=== PATIENT | female | born 1985 | race Two or more races ===

== ENCOUNTER 2022-09-23 19:09 | Emergency (ER) | payer OTHER, SELFPAY ==
[2022-09-23 19:25] VITALS: BP 155/76; BP 160/100; PULSE 83; PULSE 89; RESP 16; TEMP 37; O2SAT 100; O2SAT 99; BMI 38.9
[2022-09-23 19:36] VITALS: BP 155/76; PULSE 83; RESP 18; TEMP 37; O2SAT 100
--- NOTE | 2022-09-23 20:22 | ED_ITS ---
History of Present Illness General Chief Complaint: Epistaxis Stated Complaint: Intermittent Nosebleed x 1 week Time Seen by Provider: 09/23/22 20:05 Source: patient, RN notes reviewed and old records reviewed Mode of arrival: ambulatory Limitations: no limitations History of Present Illness HPI Narrative: 37 years old female with past medical history of hypertension, seasonal allergies, frequent sinus infections, anemia, lupus is here today for evaluation of her frequent nose bleeds. Patient states that she started her nose bleed about 1 and half weeks ago. Patient states that it started are the blue. Pat ient states that she did not take her nose. No associated high blood pressure, however patient is on blood pressure medication hydrochlorothiazide 25 mg daily. Patient states that she did not take hydrochlorothiazide in the last 3 days as she did not had any more refills. Patient reports that she had sinus infection about a month ago. Patient states that sometimes she has a nose bleed at night when she is sleeping. Patient reports nosebleed in bilateral nostrils. Patient does have a nose ring in her right nostril. Patient denies any fever or chills. Location: Yes bilateral nares Onset/current episode: Yes week(s) Duration: Yes intermittent and Yes now resolved Pertinent past history: No history of heriditary bleeding disorder Context: No aspirin use, No warfarin use, No hypertension, No recent surgery, No trauma and No intranasal steriod use (Patient is allergic to Flonase) Associated symptoms: Yes sinus pain Treatment prior to arrival: Yes nose pinching Related Data Previous Rx's Medication Instructions Recorded sodium chloride 0.65 % nasal spray 1 spray intranasal BID PRN dry 09/23/22 aerosol (Nasal Moisturizing) nasal passages #44 mL Allergies Allergy/AdvReac Type Severity Reaction Status Date / Time tramadol [TRAMADOL] Allergy Intermediate NAUSEA & Unverified 08/06/20 18:17 VOMITING Sulfa (Sulfonamide Allergy Mild RASH Unverified 08/06/20 18:17 Antibiotics) [SULFA (SULFONAMIDE ANTIBIOTICS)] fluticasone [From FLONASE] Allergy Unknown RASH Unverified 08/06/20 18:17 ondansetron [From ZOFRAN] Allergy Unknown UNKNOWN Unverified 08/06/20 18:17 SEAFOOD Allergy Intermediate HIVES Uncoded 08/06/20 18:17 Review of Systems 2 Constitutional: Constitutional: Denies weight gain and Denies weight loss ENT: Reports epistaxis Cardiovascular: Cardiovascular: Reports no additional cardiovascular complaints Respiratory: Respiratory: Reports no additional respiratory complaints Gastrointestinal: Gastrointestinal: Denies abdominal pain, Denies dyspepsia and Denies vomiting Musculoskeletal: Musculoskeletal: Reports no additional musculoskeletal complaints Neurologic: Reports system reviewed and no additional complaints, except as documented Psychiatric: Psychiatric: Reports no additional psychiatric complaints Endocrine: Endocrine: Reports no additional endocrine complaints Hematologic/Lymphatic: Hematologic/Lymphatic: Reports no additional hematologic/lymphatic complaints Allergic/Immunologic: Allergic/Immunologic: Reports seasonal rhinorrhea Comments: History of frequent sinus infections last one treated 1 month ago PMFSH Social History Social History Alcohol intake: never Smoked in Last 30 Days: No Use of substances other than those prescribed or required for medical reasons: No Advance Directives: No Advance Directives Information Provided: No Physical Exam Vital Signs: Vital Signs: Last Vital Signs Temp 98.6 F 09/23/22 20:41 Pulse 80 09/23/22 20:41 Resp 14 09/23/22 20:41 BP 146/85 H 09/23/22 20:41 Pulse Ox 100 09/23/22 20:41 O2 Del Method 09/23/22 20:41 BMI result Body Mass Index 38.9 Const: General: healthy appearing, no acute distress and well developed Nutritional Appearance: well nourished HEENT: Head: Yes normal to inspection, Yes normocephalic and Yes atraumatic Face and sinus: Yes normal facial exam Mouth: Normal oral and palatal mucosa present Throat: Yes posterior oropharynx normal, Yes tonsils normal and Yes uvula midline Eyes: General: appearance normal, both eyes and all related structures Neck: Neck: Yes normal visual inspection, Yes full ROM and Yes trachea midline Thyroid: Thyroid normal Resp: Effort & Inspection: normal respiratory effort, able to speak in complete sentences, no tracheal deviation and symmetric chest movement Auscultation: clear to auscultation bilaterally Skin: General skin exam: elasticity normal, turgor normal and dry skin Psych: Appearance: grossly normal Mental Status: mental status grossly normal Speech and movement: Normal speech and movement present Affect: normal affect Course Course Course Narrative: 37 years old female with past medical history of hypertension, seasonal allergies, frequent sinus infections, anemia, lupus is here today for evaluation of her frequent nose bleeds. Patient states that she started her nose bleed about 1 and half weeks ago. Patient states that it started are the blue. Patient states that she did not take her nose. No associated high blood pres sure, however patient is on blood pressure medication hydrochlorothiazide 25 mg daily. Patient states that she did not take hydrochlorothiazide in the last 3 days as she did not had any more refills. Patient reports that she had sinus infection about a month ago. Patient states that sometimes she has a nose bleed at night when she is sleeping. Patient reports nosebleed in bilateral nostrils. Patient does have a nose ring in her right nostril. Patient denies any fever or chills. There is no post nasal drip. Patient has bilateral nostrils are clean. Mild redness to bilateral nostrils. Patient will be sent home to follow-up with PCP. Will refer her to gear milling machine set up operator. Patient was encouraged to get full humidifier to use it at night time. Patient may use nasal saline spray. Discharge Plan Discharge Clinical Impression: Epistaxis Patient Disposition: Home, Self-Care Instructions: Nosebleed (ED) Additional Instructions: You were seen here because you had frequent nosebleeds. Please make sure that you keep your nostrils moist with saline spray. You may use who humidifier at night time to keep the air moist. I will refer you to gear milling machine set up operator. Please return to emergency department if you will have increase high blood pressure, severe headache, fever or increase frequency of bleeding Prescriptions: New Nasal Moisturizing 0.65 % aerosol,spray 1 spray intranasal BID PRN (Reason: dry nasal passages) Qty: [phone] [id number] Referrals: Jet Sotomayor [Physician] - (Frequent nose bleeds, frequent sinus infections.) Stand Alone Forms: Work/School Release
[2022-09-23 20:41] VITALS: BP 146/85; PULSE 80; RESP 14; TEMP 37; O2SAT 100
--- NOTE | 2022-09-23 21:17 | PC.NURSE ---
Discharge instructions provided to pt. All questions answered. Pt verbalizes understanding.
== END 2022-09-23 21:17 | disposition home or self-care (01) ==
PROVIDERS: Emergency Provider Student in an Organized Health Care Education/Training Program
DX: R04.0 Epistaxis (principal); I10 Essential (primary) hypertension; Z79.899 Other long term (current) drug therapy
CPT/HCPCS: 99283; 99284